=== PATIENT | female | born 1980 | race Asian ===

== ENCOUNTER → 2017-02-24 | Outpatient (CLI) | payer BC ==
--- NOTE | ~2017-02-24 | US128 ---
[id number] [address] [address] [id number] O MR#: [id number] Acc #: [id number] NAME: ABIGAIL SALAS : 1980 SEX: F STUDY DATE/TIME: 02/24/2017 12:50 UNIT: [facility] ROOM: STUDY DESCRIPTION: US Thyroid Attending Physician: Celina Tate M.D. Referring Physician: Celina Tate M.D. Ordering Physician: Celina Tate M.D. Primary Care Physician: Abby Mark M.D. MEDICAL IMAGING REPORT This report is preliminary unless electronic signature is present. EXAM Thyroid ultrasound 02/24/2017 HISTORY Nontoxic multinodular goiter. COMPARISON Thyroid ultrasound 02/26/2016. FINDINGS The right thyroid lobe measures 5.3 x 2.9 x 1.8 cm. The left thyroid lobe measures 5.3 x 2.2 x 1.6 cm. The isthmus measures 4 mm thickness. There is a dominant cystic nodule containing an eccentric solid nodular component occupying most of the right wsw-zs-cxcue thyroid pole. On today's examination, it measures 1.9 x 1.3 x 2.9 cm compared to 1.8 x 2.8 x 1.4 cm on 02/26/2016. The eccentric solid nodular component within this lesion 4 x 3 x 4 mm and is unchanged since 02/26/2016. This eccentric solid nodular component appears to have some trace internal vascularity, also similar to prior exam. Of additional note, this lesion on the 12/04/2012 examination had a smaller cystic component but a larger solid nodular component, with the solid component in 2012 measuring up to 9 x 9 x 4 mm. 2 tiny hypoechoic foci are seen within the left lower thyroid pole, favored to represent cysts, 1 more superolaterally measuring 3 x 2 x 5 mm, another more inferiorly located measuring 3 x 2 x 3 mm, not appreciably changed when correlated to sagittal images from the previous study. The coarse calcification at the right lower thyroid pole is not well visualized on today's examination, faintly seen on the sagittal image where it measures about 3 mm, and is not thought to be significantly changed since 02/26/2016. IMPRESSION 1. Complex cystic nodule in the right wqs-ie-ugojk thyroid pole as described above. It contains an eccentric 4 mm solid nodular component. Both the cystic and solid nodular components appear stable when compared to 02/26/2016, while the cystic focus measures slightly larger than on the 2013 examination, the nodular component is smaller than on the 2013 examination which would favor a benign etiology. 2. 2 tiny hypoechoic foci within the left lower thyroid pole thought to represent cysts, thought to be unchanged when correlated to sagittal projection images from the previous exam. 3. Single coarse calcification in the right lower thyroid pole is only faintly visualized on today's examination in the sagittal projection and appears stable. No new or suspicious microcalcifications are identified. Dictated by... Nurys Moreno M.D. THIS IS AN ELECTRONICALLY VERIFIED REPORT Nurys Moreno M.D. at 02/28/2017 8:33 AM TRUPTI/lauren TD: 02/27/2017 10:42 JOB #: [id number] MEDICAL IMAGING REPORT Page 1 of 1
== END | disposition home or self-care (01) ==
LOC: SGUS 12:36
DX: E04.2 Nontoxic multinodular goiter (principal); E04.1 Nontoxic single thyroid nodule
CPT/HCPCS: 76536

== ENCOUNTER → 2017-06-29 | Outpatient (CLI) | payer BC ==
--- NOTE | ~2017-06-29 | XA230 ---
[facility] A Service of [facility] RADIOLOGY TEXT RESULTS PATIENT: ABIGAIL SALAS [facility] [birth year] UNIT #: [id number] AGE: [address]: Celina Tate MD SEX: F ORDER DR: [id number] [facility] [address] [place], [place] [address] [id number] O MR#: [id number] Acc #: [id number] NAME: ABIGAIL SALAS : 1980 SEX: F STUDY DATE/TIME: 06/29/2017 13:50 UNIT: [facility] ROOM: STUDY DESCRIPTION: XA FNA Attending Physician: Celina Tate M.D. Referring Physician: Celina Tate M.D. Ordering Physician: Celina Tate M.D. Primary Care Physician: Abby Mark M.D. MEDICAL IMAGING REPORT This report is preliminary unless electronic signature is present EXAM Fine needle aspiration of a right-sided thyroid nodule. HISTORY Complex right nodule. TECHNIQUE The procedure explained the patient including risks, benefits and complications. Informed consent was obtained and a formal time-out procedure was utilized. Sterile technique was employed via standard protocol including sterile ultrasound, probe cover sterile ultrasound gel. Using sterile technique and following local anesthesia with 1% Xylocaine, 25-gauge needles were utilized to aspirate the right thyroid mass. After the first 2 aspirations, an 18-gauge needle was used to evacuate as much fluid from the lesion is possible. This fluid was also given to cytology to spin down for additional analysis. One additional past was then made. Different areas of the lesion were sampled focusing on the wall, a prominent nodule along the posterior wall, and frond-like soft tissues. Stranding within the lesion in the cystic component. The patient tolerated the procedure well. IMPRESSION Technically successful ultrasound-guided right thyroid nodule fine-needle aspiration. Dictated by... Juan Briscoe M.D. THIS IS AN ELECTRONICALLY VERIFIED REPORT Juan Briscoe M.D. at 06/30/2017 4:43 PM [facility] A Service of [facility] RADIOLOGY TEXT RESULTS PATIENT: ABIGAIL SAALS [facility] #: [id number] : [birth year] UNIT #: [id number] AGE: [address]: Celina Tate MD SEX: F ORDER DR: Luciana TD: 06/29/2017 20:02 JOB #: [id number] MEDICAL IMAGING REPORT Page 1 of 1 COPY
== END | disposition home or self-care (01) ==
LOC: CIVR 13:34
DX: E04.2 Nontoxic multinodular goiter (principal)
CPT/HCPCS: 76942; 88173; 88305